=== PATIENT | male | born 1990 | race Hispanic/Latino ===

== ENCOUNTER 2016-06-03 21:32 | Emergency (ER) | payer MEDICAID ==
[2016-06-03 21:32] VITALS: PULSE 65
[2016-06-03 22:05] VITALS: BMI 36.0
--- NOTE | 2016-06-03 22:50 | ED PDOC ---
Arrival/HPI - General Chief Complaint: Fever Time Seen by Provider: 06/03/16 22:26 Historian: Patient - History of Present Illness Narrative History of Present Illness (Text): 06/03/16 22:46 25yo male with history of Cardiac Myopathy with recent Cardiac transplant in February present with complaint of fever, nausea, decrease appetite since yesterday. States he has not been complaint with his medications. He denies chest pain, SOB, diaphoresis, rash, neck pain, abdominal pain, nausea, vomiting , any other complaint. Past Medical History - Provider Review Nursing Documentation Reviewed: Yes - Infectious Disease Hx of Infectious Diseases: None - Tetanus Immunization Tetanus Immunization: Unknown - Cardiac Hx Cardiac Disorders: Yes (CARDIAC CATH ,CARDIOMYOPATHY) Hx Heart Transplant: Yes ([id number]) Hx Hypertension: Yes Hx Internal Defibrillator: Yes Other/Comment: pacemaker,CARDIOMEGALY,MYOCARDITIS, - Pulmonary Hx Respiratory Disorders: No - Neurological Hx Neurological Disorder: Yes HX Cerebrovascular Accident: Yes Hx Dizziness: Yes (SYNCOPE) Hx Transient Ischemic Attacks (TIA): Yes - HEENT Hx HEENT Disorder: No - Renal Hx Renal Disorder: No - Endocrine/Metabolic Hx Endocrine Disorders: No - Hematological/Oncological Hx Blood Disorders: No - Integumentary Hx Dermatological Disorder: No - Musculoskeletal/Rheumatological Hx Falls: No - Gastrointestinal Hx Gastrointestinal Disorders: No - Genitourinary/Gynecological Hx Genitourinary Disorders: No - Psychiatric Hx Depression: No Hx Emotional Abuse: No Hx Physical Abuse: No Hx Substance Use: No - Past Surgical History Past Surgical History: No Previous - Surgical History Other/Comment: pacemaker/DEFIB removal,CARDIAC CATH. heart transplant [id number] - Anesthesia Hx Anesthesia: Yes Hx Anesthesia Reactions: No Hx Malignant Hyperthermia: No - Suicidal Assessment Feels Threatened In Home Enviroment: No Family/Social History - Physician Review Nursing Documentation Reviewed: Yes Family/Social History: Unknown Family HX Smoking Status: Never Smoked Hx Alcohol Use: No Hx Substance Use: No Hx Substance Use Treatment: No Allergies/Home Meds Allergies/Adverse Reactions: Allergies No Known Allergies Allergy (Verified 06/03/16 22:05) Home Medications: Home Meds Medication Instructions Recorded Confirmed Aspirin [Ecotrin] 81 mg PO DAILY #0 03/31/15 06/03/16 Pantoprazole [Protonix EC Tab] 40 mg PO DAILY 01/17/16 06/03/16 Atorvastatin Calcium [Atorvastatin 10 mg PO DAILY 06/03/16 06/03/16 Calcium] Calcium Citrate/Vitamin D3 1 tab PO DAILY 06/03/16 06/03/16 [Calcium Cit-Vit D 250-200 Tab] Ferrous Sulfate [Feosol] 325 mg PO DAILY 06/03/16 06/03/16 Folic Acid [Folic Acid] 1 mg PO DAILY 06/03/16 06/03/16 Magnesium Oxide [Mag-Ox] 400 mg PO DAILY 06/03/16 06/03/16 Multivitamin [Multivitamins] 1 tab PO DAILY 06/03/16 06/03/16 Mycophenolate [Cellcept Cap] 250 mg PO DAILY 06/03/16 06/03/16 Potassium Chloride [K-Dur 20 mEq 1 tab PO DAILY 06/03/16 06/03/16 ER Tab] Sulfamethoxazole/Trimethoprim 1 tab PO MWF 06/03/16 06/03/16 [Bactrim DS Tab] Tacrolimus [Prograf Cap] 2 mg PO BID 06/03/16 06/03/16 Torsemide [Demadex] 20 mg PO TID 06/03/16 06/03/16 valGANciclovir [Valcyte] 450 mg PO BID 06/03/16 06/03/16 Review of Systems - Physician Review All systems were reviewed & negative as marked: Yes - Review of Systems Constitutional: Fevers Eyes: Normal ENT: Normal Respiratory: Normal Cardiovascular: Normal Gastrointestinal: Nausea, Appetite Changes (DEcreased appetite). absent: Abdominal Pain, Constipation, Diarrhea, Vomiting Genitourinary Male: Normal Musculoskeletal: Normal Skin: Normal Neurological: Normal Endocrine: Normal Hemo/Lymphatic: Normal Psychiatric: Normal Physical Exam Vital Signs Reviewed: Yes Vital Signs Temp Pulse Resp BP Pulse Ox 06/04/16 00:00 100.0 F H 106 H 18 134/83 97 06/03/16 22:18 100 F H 108 H 16 117/78 100 Temperature: Febrile Blood Pressure: Normal Pulse: Tachycardic Respiratory Rate: Normal Appearance: Positive for: Well-Appearing, Non-Toxic, Comfortable Pain Distress: None Mental Status: Positive for: Alert and Oriented X 3 - Systems Exam Head: Present: Atraumatic, Normocephalic Pupils: Present: PERRL Extroacular Muscles: Present: EOMI Conjunctiva: Present: Normal Mouth: Present: Moist Mucous Membranes Neck: Present: Normal Range of Motion Respiratory/Chest: Present: Clear to Auscultation, Good Air Exchange. No: Respiratory Distress, Accessory Muscle Use Cardiovascular: Present: Regular Rate and Rhythm, Normal S1, S2. No: Murmurs Abdomen: Present: Normal Bowel Sounds. No: Tenderness, Distention, Peritoneal Signs Back: Present: Normal Inspection Upper Extremity: Present: Normal Inspection. No: Cyanosis, Edema Lower Extremity: Present: Normal Inspection. No: Edema Neurological: Present: GCS=15, CN II-XII Intact, Speech Normal Skin: Present: Warm, Dry, Normal Color. No: Rashes Psychiatric: Present: Alert, Oriented x 3, Normal Insight, Normal Concentration Medical Decision Making ED Course and Treatment: 06/03/16 22:51 PT in ED for stated history. PT will be transferred to [facility], where transplant was done. Case was DW Dr. Huber. 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 Awaiting a call back. Lab, CXr and EKG all orderd and pending 06/04/16 00:41 Dr. Marmolejo at [facility] ED called and accepted patient. Plan was DW the pt and he agreed. - Lab Interpretations Lab Results: 06/03/16 23:20 06/03/16 23:20 Lab Results 06/03/16 23:40: Urine Color Yellow, Urine Appearance Clear, Urine pH 6.0, Ur Specific Portal 1.010, Urine Protein Negative, Urine Glucose (UA) Negative, Urine Ketones Negative, Urine Blood Negative, Urine Nitrate Negative, Urine Bilirubin Negative, Urine Urobilinogen 0.2, Ur Leukocyte Esterase Negative 06/03/16 23:20: PT 11.6, INR 1.07, APTT 27.3 06/03/16 23:20: Sodium 139, Potassium 3.7, Chloride 97 L, Carbon Dioxide 27, Anion Gap 19, BUN 28 H, Creatinine 1.7 H, Est GFR ( Amer) > 60, Est GFR ( Non-Af Amer) 50, Random Glucose 99, Calcium 9.3, Total Bilirubin 0.8, AST 40, ALT 39, Alkaline Phosphatase 59, Lactate Dehydrogenase 949 H, Total Creatine Kinase 68, Troponin I < 0.01 D, Total Protein 8.3, Albumin 4.6, Globulin 3.7, Albumin/Globulin Ratio 1.2 06/03/16 23:20: WBC 5.8, RBC 4.39, Hgb 11.2 L, Hct 34.0 L, MCV 77.4 L, MCH 25.5 , MCHC 32.9, RDW 17.8 H, Plt Count 274, MPV 8.3, Gran % 82.6 H, Lymph % (Auto) 11.4 L, [place] % (Auto) 5.2, Eos % (Auto) 0.3 L, Baso % (Auto) 0.5, Gran # 4.78, Lymph # 0.7 L, [place] # 0.3, Eos # 0.0, Baso # 0.03 - RAD Interpretation Radiology Orders: 06/03/16 23:24 CHEST PORTABLE [RAD] Stat - Medication Orders Current Medication Orders: Discontinued Medications Acetaminophen (Tylenol 325mg Tab) 650 mg PO STAT STA Stop: 06/03/16 23:36 Last Admin: 06/03/16 23:57 Dose: 650 mg Disposition/Present on Arrival - Present on Arrival Any Indicators Present on Arrival: No History of DVT/PE: No History of Uncontrolled Diabetes: No Urinary Catheter: No History of Decub. Ulcer: No History Surgical Site Infection Following: None - Disposition Have Diagnosis and Disposition been Completed?: Yes Diagnosis: Fever of unknown origin Disposition: Transfer [facility] Disposition Time: 00:40 Patient Problems: Current Active Problems Problem Status Onset Fever of unknown origin Acute Condition: FAIR Referrals: Melia Prince MD [Primary Care Provider] - Follow up with primary
[2016-06-03 23:27] LABS: ADD MANUAL DIFF? NO
[2016-06-03 23:37] LABS: BASO # 0.03 K/mm3 (0.0-2.0); BASO % 0.5 % (0.0-3.0); EOS % 0.3 % (1.5-5.0); GRAN # 4.78 (1.4-6.5); GRAN % 82.6 % (50.0-68.0); LYMPH # 0.7 (1.2-3.4); LYMPH % 11.4 % (22.0-35.0); MEAN CELL VOLUME 77.4 fL (80.0-105.0); MEAN CORPUSCULAR HEMOGLOBIN 25.5 pg (25.0-35.0); MEAN CORPUSCULAR HGB CONC 32.9 g/dl (31.0-37.0); MEAN PLATELET VOLUME 8.3 fl (7.0-11.0); MONO # 0.3 (0.1-0.6); MONO % 5.2 % (1.0-6.0); PLATELET COUNT 274 10^3/uL (120.0-450.0); RED CELL DISTRIBUTION WIDTH 17.8 % (11.5-14.5); WHITE BLOOD COUNT 5.8 10^3/ul (4.5-11.0)
[2016-06-03 23:41] LABS: ALB/GLOB RATIO 1.2 (1.1-1.8); ALKALINE PHOSPHATASE 59 U/L (38-133); ALT/SGPT 39 U/L (7-56); AST/SGOT 40 U/L (15-59); BILIRUBIN,TOTAL 0.8 mg/dL (0.2-1.3); BLOOD UREA NITROGEN 28 mg/dL (7-21); CALCIUM 9.3 mg/dL (8.4-10.5); CARBON DIOXIDE 27 mmol/L (21-33); CHLORIDE 97 mmol/L (98-107); GFR AFRICAN-AMERICAN > 60; GLUCOSE,RANDOM 99 mg/dL (70-110); POTASSIUM 3.7 mmol/L (3.6-5.0); SODIUM 139 mmol/L (132-148); TOTAL PROTEIN 8.3 g/dL (5.8-8.3)
[2016-06-03 23:50] LABS: INR 1.07 (0.93-1.08); PARTIAL THROMBOPLASTIN TIME 27.3 Seconds (23.7-30.8)
[2016-06-03 23:54] LABS: TROPONIN I < 0.01 ng/mL
[2016-06-04 00:01] VITALS: BP 134/83; PULSE 106; RESP 18; TEMP 100; O2SAT 97
[2016-06-04 00:03] LABS: URINE BILIRUBIN NEGATIVE (NEGATIVE); URINE BLOOD NEGATIVE (NEGATIVE); URINE GLUCOSE (UA) NEGATIVE (NEGATIVE); URINE KETONE NEGATIVE (NEGATIVE); URINE LEUKOCYTE ESTERASE NEGATIVE Leu/uL (NEGATIVE); URINE PROTEIN NEGATIVE mg/dL (<30 mg/dL); URINE UROBILINOGEN 0.2 E.U./dL (<1 E.U./dL)
[2016-06-04 00:10] LABS: URINE APPEARANCE CLEAR (CLEAR); URINE COLOR YELLOW (YELLOW)
--- NOTE | 2016-06-04 09:50 | RAD ---
HISTORY: fever COMPARISON: Comparison chest dated 01/17/2016 FINDINGS: LUNGS: No active pulmonary disease. PLEURA: No significant pleural effusion identified, no pneumothorax apparent. CARDIOVASCULAR: Interval median sternotomy. Heart size is borderline enlarged. OSSEOUS STRUCTURES: No significant abnormalities. VISUALIZED UPPER ABDOMEN: Normal. OTHER FINDINGS: None. IMPRESSION: Interval median sternotomy. Heart size is borderline enlarged no acute infiltrates
--- NOTE | 2016-06-04 22:09 | CARD ---
APPROVED REPORT EKG Measurement Heart [id number] VA 148P12 [id number] <Conclusion> Sinus tachycardia Minimal voltage criteria for LVH, may be normal variant Borderline ECG
== END 2016-06-04 00:57 | disposition short-term general hospital (02) ==
LOC: ED 21:32
DX: R50.9 Fever, unspecified (principal)

== ENCOUNTER 2017-05-14 16:58 | Emergency (ER) | payer MEDICAID, OTHER ==
[2017-05-14 16:59] VITALS: PULSE 65; BMI 36.0
[2017-05-14 17:21] VITALS: BP 128/79; TEMP 99
--- NOTE | 2017-05-14 17:57 | ED PDOC ---
Arrival/HPI - General Chief Complaint: Dizziness/Lightheaded Time Seen by Provider: 05/14/17 17:09 Historian: Patient - History of Present Illness Narrative History of Present Illness (Text): 05/14/17 18:53 26yo male with PMHx of Cardiomyopathy, Cardiac catherization, heart transplant - February 2016, CVA bib EMS for dizziness. Patient reports positional dizziness , when he turned his head laterally this afternoon. States it last for few seconds and resolved. He denies recent URI symptoms, tinnitus, chest pain, SOB, diaphoresis, fever,chills, nausea, vomiting, abdominal pain, headache, focal weakness, any other complaint. Past Medical History - Provider Review Nursing Documentation Reviewed: Yes - Infectious Disease Hx of Infectious Diseases: None - Tetanus Immunization Tetanus Immunization: Unknown - Cardiac Hx Cardiac Disorders: Yes Hx Heart Transplant: Yes Hx Hypertension: Yes Hx Internal Defibrillator: Yes Other/Comment: pacemaker,CARDIOMEGALY,MYOCARDITIS, - Pulmonary Hx Respiratory Disorders: No - Neurological Hx Neurological Disorder: Yes HX Cerebrovascular Accident: Yes Hx Dizziness: Yes (SYNCOPE) Hx Transient Ischemic Attacks (TIA): Yes - HEENT Hx HEENT Disorder: No - Renal Hx Renal Disorder: No - Endocrine/Metabolic Hx Endocrine Disorders: No - Hematological/Oncological Hx Blood Disorders: No - Integumentary Hx Dermatological Disorder: No - Musculoskeletal/Rheumatological Hx Falls: No - Gastrointestinal Hx Gastrointestinal Disorders: No - Genitourinary/Gynecological Hx Genitourinary Disorders: No - Psychiatric Hx Psychophysiologic Disorder: Yes Hx Anxiety: Yes Hx Substance Use: No - Past Surgical History Past Surgical History: No Previous - Surgical History Other/Comment: pacemaker/DEFIB removal,CARDIAC CATH. heart transplant - Anesthesia Hx Anesthesia: Yes Hx Anesthesia Reactions: No Hx Malignant Hyperthermia: No - Suicidal Assessment Feels Threatened In Home Enviroment: No Family/Social History - Physician Review Nursing Documentation Reviewed: Yes Family/Social History: Unknown Family HX Smoking Status: Never Smoked Hx Alcohol Use: No Hx Substance Use: No Hx Substance Use Treatment: No Allergies/Home Meds Allergies/Adverse Reactions: Allergies No Known Allergies Allergy (Verified 05/14/17 17:02) Home Medications: Home Meds Medication Instructions Recorded Confirmed Aspirin [Ecotrin] 81 mg PO DAILY #0 03/31/15 05/14/17 Pantoprazole [Protonix EC Tab] 40 mg PO DAILY 01/17/16 05/14/17 Atorvastatin Calcium [Atorvastatin 10 mg PO DAILY 06/03/16 05/14/17 Calcium] Calcium Citrate/Vitamin D3 1 tab PO DAILY 06/03/16 05/14/17 [Calcium Cit-Vit D 250-200 Tab] Ferrous Sulfate [Feosol] 325 mg PO DAILY 06/03/16 05/14/17 Folic Acid [Folic Acid] 1 mg PO DAILY 06/03/16 05/14/17 Magnesium Oxide [Mag-Ox] 400 mg PO DAILY 06/03/16 05/14/17 Multivitamin [Multivitamins] 1 tab PO DAILY 06/03/16 05/14/17 Mycophenolate [Cellcept Cap] 250 mg PO DAILY 06/03/16 05/14/17 Tacrolimus [Prograf Cap] 2 mg PO BID 06/03/16 05/14/17 Carvedilol [Coreg] 1 tab PO BID 05/14/17 05/14/17 Lisinopril [Zestril] 5 mg PO DAILY 05/14/17 05/14/17 Review of Systems - Physician Review All systems were reviewed & negative as marked: Yes - Review of Systems Constitutional: Normal Eyes: Normal ENT: Normal Respiratory: Normal Cardiovascular: Normal Gastrointestinal: Normal Genitourinary Male: Normal Musculoskeletal: Normal Skin: Normal Neurological: Dizziness. absent: Focal Weakness, Speech Changes, Facial Droop Endocrine: Normal Hemo/Lymphatic: Normal Psychiatric: Normal Physical Exam Vital Signs Reviewed: Yes Vital Signs Temp Pulse Resp BP Pulse Ox 05/14/17 17:04 99.0 F 103 H 17 128/79 97 Temperature: Afebrile Blood Pressure: Normal Pulse: Regular Respiratory Rate: Normal Appearance: Positive for: Well-Appearing, Non-Toxic, Comfortable Pain Distress: None Mental Status: Positive for: Alert and Oriented X 3 - Systems Exam Head: Present: Atraumatic, Normocephalic Pupils: Present: PERRL Extroacular Muscles: Present: EOMI Conjunctiva: Present: Normal Mouth: Present: Moist Mucous Membranes Neck: Present: Normal Range of Motion Respiratory/Chest: Present: Clear to Auscultation, Good Air Exchange. No: Respiratory Distress, Accessory Muscle Use Cardiovascular: Present: Regular Rate and Rhythm, Normal S1, S2. No: Murmurs Abdomen: No: Tenderness, Distention, Peritoneal Signs Back: Present: Normal Inspection Upper Extremity: Present: Normal Inspection. No: Cyanosis, Edema Lower Extremity: Present: Normal Inspection. No: Edema Neurological: Present: GCS=15, CN II-XII Intact, Speech Normal, Motor Func Grossly Intact, Normal Sensory Function, Normal Cerebellar Funct, Norm Deep Tendon Reflexes, Gait Normal, Memory Normal, Normal 2Pt Descrimination, Other ( No focal neurological deficit) Skin: Present: Warm, Dry, Normal Color. No: Rashes Psychiatric: Present: Alert, Oriented x 3, Normal Insight, Normal Concentration Medical Decision Making ED Course and Treatment: 05/14/17 19:05 26yo male in ED for dizziness. He was hemodynamically stable and neurologically intact in ED. 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 Lab was unremarkable in ED. Plan was to admit pt for further evaluation and observation, secondary to his medically history. PT however declined admission. 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 States his symptom resolved while at home and he came to the ED only because the EMS told him to come for evaluation. He understood the risk of cardiac event, or disability that can happen with his medical history and the need for further evaluation. He is AAO x3 and have the right mentation of making this decision. He signed AMA and understood that he can always come back to the ED anytime he change his mind. EKG Sinus tachy at 102bpm. NSTEMI as read by me - Lab Interpretations Lab Results: 05/14/17 18:00 05/14/17 18:00 Lab Results 05/14/17 18:00: Sodium 141, Potassium 4.2, Chloride 106, Carbon Dioxide 23, Anion Gap 17, BUN 29 H, Creatinine 1.1, Est GFR ( Amer) > 60, Est GFR ( Non-Af Amer) > 60, Random Glucose 95, Calcium 10.2, Magnesium 1.7, Total Bilirubin 0.5, AST 30, ALT 56, Alkaline Phosphatase 58, Lactate Dehydrogenase 489, Total Creatine Kinase 95, Troponin I < 0.01, Total Protein 8.0, Albumin 4.6 , Globulin 3.4, Albumin/Globulin Ratio 1.3 05/14/17 18:00: PT 11.7, INR 1.03, APTT 29.0 05/14/17 18:00: WBC 8.6 D, RBC 4.92, Hgb 14.3, Hct 40.5 L, MCV 82.3, MCH 29.1, MCHC 35.3, RDW 13.5, Plt Count 258, MPV 8.6, Gran % 67.6, Lymph % (Auto) 24.0, [place] % (Auto) 5.3, Eos % (Auto) 2.9, Baso % (Auto) 0.2, Gran # 5.81, Lymph # ( Auto) 2.1, [place] # (Auto) 0.5, Eos # (Auto) 0.3, Baso # (Auto) 0.02 Disposition/Present on Arrival - Present on Arrival Any Indicators Present on Arrival: No History of DVT/PE: No History of Uncontrolled Diabetes: No Urinary Catheter: No History of Decub. Ulcer: No History Surgical Site Infection Following: None - Disposition Have Diagnosis and Disposition been Completed?: Yes Diagnosis: Dizziness Disposition: HOME/ ROUTINE Disposition Time: 19:00 Condition: FAIR Referrals: Elissa Barone, [Primary Care Provider] - Follow up with primary Forms: [employer] (Bengali)
[2017-05-14 18:16] LABS: BASO # 0.02 K/mm3 (0.0-2.0); BASO % 0.2 % (0.0-3.0); EOS # 0.3 (0.0-0.7); EOS % 2.9 % (1.5-5.0); GRAN # 5.81 (1.4-6.5); GRAN % 67.6 % (50.0-68.0); HEMOGLOBIN 14.3 g/dL (14.0-18.0); LYMPH # 2.1 (1.2-3.4); MEAN CELL VOLUME 82.3 fl (80.0-105.0); MEAN CORPUSCULAR HEMOGLOBIN 29.1 pg (25.0-35.0); MEAN CORPUSCULAR HGB CONC 35.3 g/dl (31.0-37.0); MEAN PLATELET VOLUME 8.6 fl (7.0-11.0); MONO # 0.5 (0.1-0.6); MONO % 5.3 % (1.0-6.0); RBC 4.92 10^6/uL (3.5-6.1); RED CELL DISTRIBUTION WIDTH 13.5 % (11.5-14.5); WHITE BLOOD COUNT 8.6 10^3/ul (4.5-11.0)
[2017-05-14 18:22] LABS: INR 1.03 (0.93-1.08); PROTHROMBIN TIME 11.7 SECONDS (9.4-12.5)
[2017-05-14 18:23] LABS: ALB/GLOB RATIO 1.3 (1.1-1.8); ALBUMIN 4.6 g/dL (3.0-4.8); ALT/SGPT 56 U/L (7-56); AST/SGOT 30 U/L (17-59); BLOOD UREA NITROGEN 29 mg/dL (7-21); CALCIUM 10.2 mg/dL (8.4-10.5); GFR AFRICAN-AMERICAN > 60; GFR NON-AFRICAN AMERICAN > 60
[2017-05-14 18:34] LABS: TROPONIN I < 0.01 ng/mL
[2017-05-14 19:04] LABS: PH,URINE 5.5 (4.7-8.0); URINE APPEARANCE CLEAR (CLEAR); URINE BILIRUBIN NEGATIVE (NEGATIVE); URINE BLOOD NEGATIVE (NEGATIVE); URINE COLOR YELLOW (YELLOW); URINE GLUCOSE (UA) NEGATIVE (NEGATIVE); URINE LEUKOCYTE ESTERASE NEGATIVE Leu/uL (NEGATIVE); URINE PROTEIN TRACE mg/dL (<30 mg/dL); URINE UROBILINOGEN 0.2 E.U./dL (<1 E.U./dL)
[2017-05-14 19:09] LABS: URINE RBC NEGATIVE /hpf (0-2); URINE WBC NEGATIVE /hpf (0-6)
[2017-05-14 19:10] VITALS: RESP 19; O2SAT 99
[2017-05-14 19:12] VITALS: PULSE 99
--- NOTE | 2017-05-15 10:18 | CARD ---
APPROVED REPORT EKG Measurement Heart [id number] NE 150P17 [id number] <Conclusion> Sinus tachycardia Q's 3,F No change
== END 2017-05-14 19:11 | disposition left against medical advice (07) ==
LOC: ED 16:58
DX: R42 Dizziness and giddiness (principal); I10 Essential (primary) hypertension; Z94.1 Heart transplant status; Z95.0 Presence of cardiac pacemaker